=== PATIENT | male | born 2000 | race Caucasian/White ===

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

== ENCOUNTER 2021-06-08 15:29 | Emergency (ER) | payer OTHER ==
[~2021-06-08] VITALS: Ht 162.6 cm; Wt 54.5 kg
[2021-06-08 15:35] VITALS: BP 143/98
[2021-06-08] MEDS ORDERED: HOME MED LIST COMPLETE! XX SCH (18:05)
== END 2021-06-08 19:54 | disposition home or self-care (01) ==
LOC: M ED 15:29
DX: F43.20 Adjustment disorder, unspecified (principal); R45.1 Restlessness and agitation; Z88.0 Allergy status to penicillin; Z91.011 Allergy to milk products